=== PATIENT | female | born 1945 | race Hispanic/Latino ===

== ENCOUNTER 2019-02-13 13:07 | Outpatient (CLI) | payer MEDICARE ==
--- NOTE | 2019-02-13 14:38 | Ultrasound Report ---
BILATERAL DIGITAL DIAGNOSTIC MAMMOGRAM with CAD and RIGHT BREAST ULTRASOUND: 02/13/19 CLINICAL: Palpable right breast lump. COMPARISON:None available. Her last mammogram was in 2017 at the [facility] mobile unit. FINDINGS: The mammogram was performed with the patient in a wheelchair since she could not stand for the mammogram. The breasts are heterogeneously dense, which may obscure small masses.An irregular spiculated right upper outer mass with large pleomorphic central calcifications measures approximately 3 cm. There is architectural distortion and dimpling of the skin at the mass. A right outer oval 1.3 cm focal asymmetry with poorly defined margins is suggestive of a second mass.The left breast is negative with scattered benign calcifications. Ultrasound of the right breast (including all four quadrants and the retroareolar area) was performed and demonstrated an irregular solid hypoechoic mass at 11 o'clock 9 cm from the nipple measuring 4.8 x 2.3 x 2.0 cm. It correlates with the mammographic mass and has large central calcifications. There is contiguous skin thickening with the skin measuring 6 mm. An oval circumscribed solid heterogeneous hypoechoic mass at 9:30 o'clock 9 cm from the nipple measures 12 x 6 x 9 mm. It correlates with the mammographic asymmetry. An oval hypoechoic shadowing mass at 7 o'clock 4 cm from the nipple measures 3 x 2 x 3 mm. Ultrasound of the right axilla demonstrated several small lymph nodes with benign morphology and central fat. No suspicious lymph nodes identified. IMPRESSION: A highly suspicious for 4.8 cm right breast mass at 11 o'clock 9 cm from the nipple and 2 additional solid suspicious masses in the right breast at 9:30 o'clock 9 cm from the nipple and at 7 o'clock 4 cm from the nipple. BI-RADS CATEGORY: 5--Highly Suspicious for Malignancy RECOMMENDATION: Ultrasound guided needle biopsy of the dominant 4.8 cm right breast mass. I discussed the findings and the recommendation for needle core biopsy of the right breast with the patient and her son at the time of the examination. COMMENT: 1. Dense breast tissue, i.e., adenosis, fibrocystic changes, etc., may obscure an underlying neoplasm. 2. Approximately 10% of cancers are not detected with mammography. 3. A negative mammography report should not delay biopsy if a clinically suspicious mass is present. COMMENT: Patient follow-up letters are generated by our [employer] application.
--- NOTE | 2019-02-13 16:06 | Mammography Report ---
BONE DEXA:02/13/19 13:07:00 CLINICAL: Postmenopausal. No comparison. TECHNIQUE: Two site bone DEXA performed on an Hologic scanner. FINDINGS: The average BMD of the lumbar spine L1-L4 is 1.411g/cm squared with a T-score of +3.3 and a Z-score of +5.7. The average BMD of the left hip is 0.968g/cm squared with a T-score of +0.2 and a Z-score of +2.0. The left femoral neck BMD is 0.715g/cm squared with a T score of -1.2 and a Z score of +0.9. IMPRESSION: 1. WHO classification: Normal with average fracture risk based on lumbar spine measurements. 2. WHO classification: Osteopenia with increased fracture risk based on left hip measurements. RECOMMENDATION: Clinical correlation and routine screening. DEFINITIONS: BMD = Bone Mineral Density T-score = BMD related to mean peak bone mass of young adult (mean expressed in Standard Deviation) Z-score = Age matched BMD expressed in SD World Health Organization (WHO) Diagnostic Criteria Normal T-score > -1 SD Osteopenia T-score between -1 and -2.4 SD Osteoporosis T-score -2.5 SD or below NOTE: BMD is not the only risk factor for fracture. One should also consider factors such as the patient's age, risk of falling, previous osteoporotic fracture, family history of osteoporotic fractures, current smoker, and low body weight. Z-scores are not calculated if >80 years of age.
== END 2019-02-13 13:08 | disposition home or self-care (01) ==
LOC: SPVWC 13:07
PROVIDERS: ATTEND Family Medicine
DX: M85.88 Other specified disorders of bone density and structure, other site (principal); N63.10 Unspecified lump in the right breast, unspecified quadrant; Z78.0 Asymptomatic menopausal state; Z91.89 Other specified personal risk factors, not elsewhere classified
CPT/HCPCS: 77066; 77080